=== PATIENT | female | born 1980 | race African-American/Black ===

== ENCOUNTER 2020-06-22 18:24 | Emergency (ER) | payer OTHER, MEDICAID ==
[~2020-06-22] VITALS: Ht 172.7 cm; Wt 104.3 kg
[~2020-06-22 18:24] MED LIST: BIRTH CONTROL; BP MEDS; CELEXA 10 MG TA10 M1 PO; CELEXA 20 MG TA20 MG PO; GLUCOPHAGE XR500 MG PO; GLUCOPHAGE500 MG PO; IBUPROFEN 800800 M1 PO; KEFLEX500 MG PO; LEVORA-281 EACH PO; LISINOPRIL-HCT1 EAC1 PO; MEDROLDOSEPACK PO; NORCO 5-325 TA1 EACH PO
[2020-06-22 19:07] LABS: ABSOLUTE LYMPHOCYTES 1.4 thou/uL (0.8-5.3); ABSOLUTE MONOCYTES 0.1 thou/uL (0.0-1.2); ABSOLUTE NEUTROPHILS 2.2 thou/uL (1.6-8.1); BASOPHILS 1.3 %; EOSINOPHILS 0.7 %; HEMATOCRIT 41.2 % (37.0-47.0); HEMOGLOBIN 13.5 gm/dL (12.0-15.0); LYMPHOCYTES 37.4 %; MCH 28.8 pg (26.0-34.0); MCHC 32.8 g/dL (28.0-37.0); MCV 87.8 fL (80.0-100.0); MONOCYTES 3.7 %; MPV 7.7 fl. (7.2-11.1); NUCLEATED RBCS 0 /100WBC; PLATELET COUNT* 235 thou/uL (150-400); POLYS 56.9 %; RBC 4.69 mil/uL (4.20-5.00); RDW-CV 13.5 % (10.5-14.5); WBC 3.9 thou/uL (4.0-11.0)
[2020-06-22 19:28] LABS: CALCIUM 8.9 mg/dL (8.5-10.1); CREATININE 0.9 mg/dL (0.6-1.3); POTASSIUM 3.7 mmol/L (3.5-5.1)
[2020-06-22 19:32] LABS: ALBUMIN 3.6 g/dL (3.4-5.0); TOTAL BILIRUBIN 0.3 mg/dL (<0.1-1.0); TOTAL PROTEIN 7.8 g/dL (6.4-8.2)
[2020-06-22] MEDS ORDERED: PREDNISONE 20 M20 MG PO (19:43)
[2020-06-22] MEDS ORDERED: PROAIR HFA8.5 GM INH (19:43)
[2020-06-22] MEDS ORDERED: TESSALON PERLE100 MG PO (19:43)
[2020-06-22] MEDS ORDERED: APAP W/CODEINE1 TA2 PO (19:43)
[2020-06-22] MEDS ORDERED: ZPAK PO (19:45)
[2020-06-22 19:47] LABS: INFLUENZA A ANTIGEN Negative (Negative); INFLUENZA B ANTIGEN Negative (Negative)
[2020-06-22 20:28] VITALS: BP 126/83
--- NOTE | 2020-06-24 14:02 | EKG ---
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
== END 2020-06-22 20:31 | disposition home or self-care (01) ==
LOC: M.ERS 18:24
PROVIDERS: Physician Assistant
DX: U07.1 COVID-19 (principal); I10 Essential (primary) hypertension; Z79.899 Other long term (current) drug therapy

== ENCOUNTER → 2021-01-16 | Outpatient (CLI) | payer OTHER, MEDICAID ==
[~2021-01-16] MED LIST changes: +APAP W/CODEINE1 TA2 PO; +PREDNISONE 20 M20 MG PO; +PROAIR HFA8.5 GM INH; +TESSALON PERLE100 MG PO; +ZPAK PO
== END ==
LOC: M.ULTRA 07:15
PROVIDERS: ATTEND Family Medicine
DX: Z12.31 Encounter for screening mammogram for malignant neoplasm of breast (principal); R59.0 Localized enlarged lymph nodes; N64.89 Other specified disorders of breast